=== PATIENT | male | born 1995 | race Caucasian/White ===

== ENCOUNTER 2022-05-03 23:57 | Emergency (ER) | payer OTHER ==
[~2022-05-03] VITALS: Ht 167.6 cm; Wt 86.2 kg
[2022-05-04] VITALS: BP 105/67
--- NOTE | 2022-05-04 | NUR ---
TO CHAIR B AMBULATORY WITH MARCIA BANG FOR PREBOOK.
--- NOTE | 2022-05-04 01:20 | NUR ---
PATIENT BIB [place] [employer]. PATIENT EXAMINED BY DR. HARDY. PATIENT MEDICALLY CLEARED AND RELEASED IN CUSTODY IN STABLE CONDITION. ORIGINAL PRE-BOOK FORM GIVEN TO OFFICER JULIUS, #[id number].
== END 2022-05-04 01:28 ==
LOC: MED 23:57
DX: S80.211A Abrasion, right knee, initial encounter (principal); V49.88XA Car occupant (driver) (passenger) injured in other specified transport accidents, initial encounter; Y93.89 Activity, other specified; Y92.89 Other specified places as the place of occurrence of the external cause; Y99.8 Other external cause status
CPT/HCPCS: 99283